=== PATIENT | female | born 1945 | race Caucasian/White ===

== ENCOUNTER 2018-04-29 14:14 | Emergency (ER) | payer OTHER ==
[~2018-04-29] VITALS: Ht 160 cm; Wt 68.0 kg
--- NOTE | 2018-04-29 15:33 | ED HEAD/FACIAL INJ COMPLAINT ---
History of Present Illness General Chief Complaint: Facial or Head Injury Stated Complaint: BIBA FOR TRIP AND FALL, HEAD INJURY -LOC/THINNERS Source: patient Exam Limitations: no limitations Vital Signs & Intake/Output Vital Signs & Intake/Output Vital Signs Date Time Temp Pulse Resp B/P B/P Pulse O2 O2 Flow FiO2 Mean Ox Delivery Rate 04/29 1729 97.0 65 18 184/80 96 Room Air 04/29 1630 Room Air Room Air 04/29 1423 97.2 57 18 138/86 98 Room Air ED Intake and Output 04/30 0000 04/29 1200 Intake Total Output Total Balance Patient 150 lb Weight Weight Reported by Patient Measurement Method Allergies Coded Allergies: No Known Allergies (04/29/18) Reconcile Medications Naproxen (Naprosyn) 500 MG TABLET 1 TAB PO BID PRN pain Triage Note: PT BIBA FROM [facility] AFTER TRIP AND FALL FROM STANDING HEIGHT. LACERATION TO HEAD WITH SWEELING AND HEMATOMA. PT DENIED LOC AND USE OF BLOOD THINNERS. PT C/O PAIN TO HEAD AND LOWER BACK Triage Nurses Notes Reviewed? yes HPI: Patient is a 72 y/o female who presents after a fall a few hours ago. According to patient she was in her nondenominational walking up stairs when she tripped and hit the front and side of her head on a radiator. She denies LOC. Patient complains now of head pain and lower back pain after the fall. She denies any dizzinies, nausea, or vomiting. She denies currently taking anticoagulation medications. Past History Travel History Traveled to [place] past 21 day No Medical History Any Pertinent Medical History? see below for history Neurological: NONE EENT: NONE Cardiovascular: hypertension Respiratory: NONE Gastrointestinal: NONE Hepatic: NONE Renal: NONE Musculoskeletal: NONE Psychiatric: NONE Endocrine: diabetes Blood Disorders: NONE Cancer(s): NONE Surgical History Surgical History: non-contributory Psychosocial History What is your primary language Amharic Tobacco Use: Never used Family History Hx Contributory? No Review of Systems Review of Systems Constitutional: Reports: no symptoms. EENTM: Reports: no symptoms. Respiratory: Reports: no symptoms. Cardiovascular: Reports: no symptoms. GI: Reports: no symptoms. Genitourinary: Reports: no symptoms. Musculoskeletal: Reports: back pain. Neurological/Psychological: Reports: headache. Hematologic/Endocrine: Reports: no symptoms. Immunologic/Allergic: Reports: no symptoms. All Other Systems: Reviewed and Negative Comments Patient complains of laceration of forehead and swelling on left lateral side of head. Physical Exam Physical Exam General Appearance: well developed/nourished, no apparent distress, alert, awake , mild distress Head: active bleeding, lacerations, swelling and hematoma on left lateral frontal/parietal region with overlying 1.5cm laceration. 1.5cm laceration to forehead Eyes: Bilateral: normal appearance, EOMI. Ears, Nose, Throat: normal pharynx, normal ENT inspection, hearing grossly normal Neck: normal inspection, supple Respiratory: normal breath sounds, no respiratory distress Cardiovascular: regular rate/rhythm Gastrointestinal: normal bowel sounds, soft, non-tender, no organomegaly Back: lumbar vertebral tenderness Extremities: normal inspection Psychiatric: awake, alert, oriented x 3 Cranial Nerves: normal hearing, normal speech, PERRL Coordination/Gait: normal gait Progress Differential Diagnosis: c-spine injury, skull fracture Plan of Care: Current Medications Sig/Renaldo Start time Last Medication Dose Stop Time Status Admin Lidocaine/Epinephrine 0 .STK-MED ONE 04/29 1626 CAN Lidocaine/Epinephrine 20 ML ONCE ONE 04/29 1545 CAN 04/29 1546 Departure Departure Disposition: HOME OR SELF CARE Condition: Stable Clinical Impression Primary Impression: Fall Qualifiers: Encounter type: initial encounter Qualified Code: W19.XXXA - Unspecified fall, initial encounter Secondary Impressions: Laceration of forehead Qualifiers: Encounter type: initial encounter Qualified Code: S01.81XA - Laceration without foreign body of other part of head, initial encounter Laceration of scalp Qualifiers: Encounter type: initial encounter Qualified Code: S01.01XA - Laceration without foreign body of scalp, initial encounter Referrals: Unknown (PCP/Family) Additional Instructions: Follow-up in 1 week for suture and staple removal. Departure Forms: Customer Survey General Discharge Information Prescriptions: Current Visit Scripts Naproxen (Naprosyn) 1 TAB PO BID PRN pain #30 TAB Comments Please note that there might be incidental findings in your evaluation that are unrelated to the current emergency department visit. Please notify your primary care doctor about this emergency department visit in order to obtain and review all of the testing performed so that these incidental findings can be monitored as needed. If you had an x-ray performed, please understand that some fractures may not be seen on the initial set of x-rays. If your symptoms persist you might need a repeat set of x-rays to check for such a fracture. If you had a laceration evaluated, please understand that foreign bodies such as glass or wood may not be visible to the naked eye or on plain x-rays. If the wound becomes red, swollen, increasingly more painful or if there is any drainage from the wound, please have it reevaluated by a physician for the possibility of a retained foreign body. If you're unable to follow up as outlined in the discharge instructions please return to the emergency department. Procedures Laceration/Wound Repair Laceration/Wound Repair: Wound Location: forehead Wound's Depth, Shape: linear Wound Length (cm): 1.5 Wound Explored: irrigated extensively Irrigated w/ Saline (ccs): 50 Betadine Prep? Yes Anesthesia: lidocaine w/ epi Volume Anesthetic (ccs): 2 Wound Debrided: minimal Wound Repaired With: sutures Suture Size/Type: 6:0, nylon Number of Sutures: 3 Layer Closure? No Date of Last Tetanus: 04/29/18 Progress: 3, 6.0 nylon sutures placed in forehead laceration with minimal bleeding. Patient tolerated procedure well. 1.5cm laceration overlying hematoma on left lateral frontal/parietal region repaired with 3 christine. Minimal bleeding. Patient tolerated the procedure well
--- NOTE | 2018-04-29 16:10 | RADIOLOGY REPORT ---
EXAMINATION: XR LUMBOSACRAL SPINE CLINICAL INFORMATION: Trauma. COMPARISON: None. TECHNIQUE: 2 views, 3 images of the lumbosacral spine were obtained. FINDINGS: Mild diffuse osteopenia is noted involving all the visualized bones. The height, alignment of the lumbar vertebrae is well maintained. Mild multilevel degenerative spondylosis-related changes are noted within the lumbar spine in the form of endplate osteophyte formation, decreased disc height and endplate sclerosis. Atherosclerotic disease is noted within the aorta and its branches. Incidental note is made of lumbarization of S1 vertebral body. There is a linear radiopaque foreign body visualized within the pelvis, not optimally localized, seen only on the frontal projection, may represent intrauterine contraceptive device. In addition, there is a subcentimeter radiopaque foreign body visualized projecting over the right iliac bone, may represent a radiopaque pellet. IMPRESSION: 1. Mild diffuse osteopenia. 2. Mild multilevel degenerative spondylosis. 3. No radiographic evidence of any compression fracture of the lumbosacral spine. 4. Mild atherosclerotic disease of the aorta and its branches. 5. Radiopaque foreign body within the pelvis, may represent intrauterine contraceptive device, seen only on the frontal projection. 6. Subcentimeter possible radiopaque pellet projecting over the posterior medial aspect of the right iliac bone.
--- NOTE | 2018-04-29 16:26 | CT SCAN REPORT ---
EXAMINATION: CT HEAD WITHOUT CONTRAST CT CERVICAL SPINE WITHOUT CONTRAST CLINICAL INFORMATION: Trauma. COMPARISON: None. TECHNIQUE: Imaging was performed from the skull base to vertex without intravenous administration of contrast. In addition, helical noncontrast CT imaging was acquired through the cervical spine and source images were reviewed along with axial reconstructions and sagittal and coronal MPRs. DLP: 147.34 mGy-cm FINDINGS: HEAD: No intracranial mass, hemorrhage, or midline shift is visualized. There is atrophy with prominence of the ventricles and the sulci and hypodensity of the periventricular white matter due to chronic small vessel ischemic disease. There is vascular calcifications of the internal carotid arteries bilaterally. No extra-axial collections are identified. There is no skull fracture. There is a small scalp hematoma over the left frontal and parietal bone. The paranasal sinuses and mastoid air cells are well aerated. CERVICAL SPINE: There is no evidence of acute cervical spine fracture. Vertebral bodies remain normal in height. Cervical vertebrae have normal alignment. There is multilevel degenerative spondylosis of the cervical spine with disc height narrowing and endplate spurs and facet joint arthrosis No pre- or paravertebral soft tissue abnormality is identified. Limited assessment of the lung apices is unremarkable. IMPRESSION: 1. No acute intracranial pathology. 2. No CT evidence of acute cervical spine fracture or traumatic subluxation
[2018-04-29] MEDS ORDERED: NAPROSYN500 M1 PO (17:18)
[2018-04-29 17:29] VITALS: BP 184/80
== END 2018-04-29 17:53 ==
LOC: ERH 14:14
DX: S01.81XA Laceration without foreign body of other part of head, initial encounter (principal); S01.01XA Laceration without foreign body of scalp, initial encounter; W18.09XA Striking against other object with subsequent fall, initial encounter; Y92.22 Religious institution as the place of occurrence of the external cause; Y93.01 Activity, walking, marching and hiking; I10 Essential (primary) hypertension; E11.9 Type 2 diabetes mellitus without complications
CPT/HCPCS: 72110; 90471; 90714